=== PATIENT | female | born 1960 | race Caucasian/White ===

== ENCOUNTER → 2016-09-19 | Day surgery (SDC) | payer OTHER ==
[~2016-09-19] MED LIST: ACETAMINOPHEN 1000 MG/100 ML VIAL IV ONE; CITA20 PO; ESTR1TAB PO; LACTATED RINGER'S 1000 ML INJ 1,000 ML ONE; LIDOCAINE HCL 1% 50 ML VIAL ONE; MEDR2.5T19 PO; MEPERIDINE HCL 50 MG/ML VIAL ONE; MIDAZOLAM HCL 2 MG/2 ML VIAL ONE; ONDANSETRON HCL 4 MG/2 ML VIAL IV PUSH ONE; PRIL20CA PO; PROPOFOL 200 MG/20 ML AMP IV ONE; ceFAZolin INJ 1,000 MG VIAL ONE
--- NOTE | 2016-09-19 14:43 | TN ---
cc: JONI WATSON M.D. DATE OF SURGERY: 09/19/2016 PREOPERATIVE DIAGNOSIS Lipodystrophy of the torso, arms and thighs. POSTOPERATIVE DIAGNOSIS Lipodystrophy of the torso, arms and thighs. PROCEDURE Slim lipo. SURGEON Joni Watson MD ANESTHESIA LMA. Total I&O's 3090 in, 2050 out, the difference of 1040, total energy utilized 100,000 joules 2019. ESTIMATED BLOOD LOSS Minimal. COMPLICATIONS None. PROCEDURE She was properly consented, marked and anesthetized. The skin was sterilized with Betadine solution and a tulip draping system was utilized. DVT prophylaxis was properly ensued utilizing foot pumps and warm bed along with flexion of the antecubital fossa. Puncture wounds were done utilizing 11-blade. I proceeded and performed delivery of the tumescent fluid. The tumescent fluid was a combination of the followin ccs of normal saline, 30 ccs of 1% lidocaine with epinephrine was mixed with 1 cc epinephrine 1:1000. After tumescent was placed strategically on the upper lower abdomen, flanks, back, arms as well as the inner thighs, inner knees, delivery of the energy was done utilizing 2019. We started with the arms, went to the abdomen, thighs and then we turned the patient [id number] at which we properly delivered the energy and evacuated the effluent. The total I&O's 3090 in and 2050 out. Each and every one of the puncture wounds were closed utilizing 5-0 Chromic suture and Steri-Strips applied. A girdle was applied thereafter. Good viability and contouring was achieved at the end of the case. The patient was awakened, extubated in operating room and transferred back to the postanesthesia care unit in stable condition. No complications were appreciated. The patient tolerated the procedure fairly well. MD DEWEY Duckworth/VESTA /2:16 PM /2:29 PM
== END | disposition home or self-care (01) ==
LOC: ESDC 09:49
PROVIDERS: ATTEND Plastic Surgery
DX: Z41.1 Encounter for cosmetic surgery (principal)
CPT/HCPCS: 00300; 00400; 15877; 15878; 15879; J0131; J0690; J2175; J2250; J2405; J3010; J7120